=== PATIENT | male | born 1985 | race Caucasian/White ===

== ENCOUNTER 2019-01-17 15:35 | Emergency (ER) | payer SELFPAY ==
[~2019-01-17] VITALS: Ht 180.3 cm; Wt 95.4 kg
[~2019-01-17 15:35] MED LIST: BACITUD TOP
[2019-01-17 15:37] VITALS: BP 154/82; PULSE 106; RESP 20; Ht 180.3 cm; Wt 95.4 kg
[2019-01-17] MEDS ORDERED: BACITRACIN 0.5%/ZINC 28.35 GM OINT TOP ONE (17:30)
== END 2019-01-17 17:43 | disposition home or self-care (01) ==
LOC: FTE 15:35
DX: S51.811A Laceration without foreign body of right forearm, initial encounter (principal); F17.210 Nicotine dependence, cigarettes, uncomplicated; W26.8XXA Contact with other sharp object(s), not elsewhere classified, initial encounter; Y92.9 Unspecified place or not applicable